=== PATIENT | female | born 1955 | race Caucasian/White ===

== ENCOUNTER → 2016-06-08 | Outpatient (CLI) | payer MEDICARE, BC | LOC: BHSO 10:38 | DX: F31.73 Bipolar disorder, in partial remission, most recent episode manic (principal) ==

== ENCOUNTER → 2016-08-18 | Outpatient (CLI) | payer MEDICARE, BC | LOC: BHSO 13:35 | DX: F31.73 Bipolar disorder, in partial remission, most recent episode manic (principal) ==

== ENCOUNTER → 2016-09-16 | Outpatient (CLI) | payer MEDICARE, BC | LOC: BHSO 10:16 | DX: F31.73 Bipolar disorder, in partial remission, most recent episode manic (principal) ==

== ENCOUNTER → 2016-10-14 | Outpatient (CLI) | payer MEDICARE, BC | LOC: BHSO 10:17 | DX: F31.73 Bipolar disorder, in partial remission, most recent episode manic (principal) ==

== ENCOUNTER → 2016-12-03 | Outpatient (CLI) | payer MEDICARE, BC | LOC: BHSO 10:18 | DX: F31.73 Bipolar disorder, in partial remission, most recent episode manic (principal) ==

== ENCOUNTER → 2016-12-31 | Outpatient (CLI) | payer MEDICARE, BC | LOC: BHSO 13:11 | DX: F31.73 Bipolar disorder, in partial remission, most recent episode manic (principal) ==

== ENCOUNTER → 2017-02-08 | Outpatient (CLI) | payer MEDICARE, BC | LOC: BHSO 11:38 | DX: F31.73 Bipolar disorder, in partial remission, most recent episode manic (principal) ==

== ENCOUNTER → 2017-03-03 | Outpatient (CLI) | payer MEDICARE, BC | LOC: BHSO 12:44 | DX: F41.1 Generalized anxiety disorder (principal) ==

== ENCOUNTER → 2017-04-26 | Outpatient (CLI) | payer MEDICARE, BC | LOC: BHSO 09:50 | DX: F31.73 Bipolar disorder, in partial remission, most recent episode manic (principal) | CPT/HCPCS: G0463 ==

== ENCOUNTER → 2017-05-20 | Outpatient (CLI) | payer MEDICARE, BC | LOC: BHSO 13:35 | DX: F31.4 Bipolar disorder, current episode depressed, severe, without psychotic features (principal) | CPT/HCPCS: G0463 ==

== ENCOUNTER → 2017-06-17 | Outpatient (CLI) | payer MEDICARE, BC | LOC: BHSO 10:41 | DX: F31.81 Bipolar II disorder (principal) | CPT/HCPCS: G0463 ==

== ENCOUNTER → 2017-07-12 | Outpatient (CLI) | payer MEDICARE, BC | LOC: BHSO 12:53 | DX: F31.4 Bipolar disorder, current episode depressed, severe, without psychotic features (principal) | CPT/HCPCS: G0463 ==

== ENCOUNTER → 2017-08-10 | Outpatient (CLI) | payer MEDICARE, BC | LOC: BHSO 13:48 | DX: F25.0 Schizoaffective disorder, bipolar type (principal) | CPT/HCPCS: G0463 ==

== ENCOUNTER → 2017-09-28 | Outpatient (CLI) | payer MEDICARE, BC | LOC: BHSO 11:30 | DX: F31.31 Bipolar disorder, current episode depressed, mild (principal) | CPT/HCPCS: G0463 ==

== ENCOUNTER → 2017-10-27 | Outpatient (CLI) | payer MEDICARE, BC | LOC: BHSO 08:55 | DX: F25.0 Schizoaffective disorder, bipolar type (principal) | CPT/HCPCS: G0463 ==

== ENCOUNTER → 2017-11-23 | Outpatient (CLI) | payer MEDICARE, BC | LOC: BHSO 10:32 | DX: F31.76 Bipolar disorder, in full remission, most recent episode depressed (principal) | CPT/HCPCS: G0463 ==

== ENCOUNTER → 2018-01-04 | Outpatient (CLI) | payer MEDICARE, BC | LOC: BHSO 10:30 | DX: F31.76 Bipolar disorder, in full remission, most recent episode depressed (principal) | CPT/HCPCS: G0463 ==

== ENCOUNTER → 2018-02-03 | Outpatient (CLI) | payer MEDICARE, BC | LOC: BHSO 10:15 | DX: F25.0 Schizoaffective disorder, bipolar type (principal) | CPT/HCPCS: G0463 ==

== ENCOUNTER → 2018-04-04 | Outpatient (CLI) | payer MEDICARE, BC | LOC: BHSO 11:16 | DX: F31.75 Bipolar disorder, in partial remission, most recent episode depressed (principal) | CPT/HCPCS: G0463 ==

== ENCOUNTER → 2018-05-25 | Outpatient (CLI) | payer MEDICARE, BC | LOC: BHSO 11:36 | DX: F31.72 Bipolar disorder, in full remission, most recent episode hypomanic (principal) | CPT/HCPCS: G0463 ==

== ENCOUNTER → 2018-08-01 | Outpatient (CLI) | payer MEDICARE, BC | LOC: BHSO 11:35 | DX: F31.75 Bipolar disorder, in partial remission, most recent episode depressed (principal) | CPT/HCPCS: G0463 ==

== ENCOUNTER → 2018-09-20 | Outpatient (CLI) | payer MEDICARE, BC | LOC: BHSO 14:39 | DX: F41.1 Generalized anxiety disorder (principal) | CPT/HCPCS: G0463 ==

== ENCOUNTER → 2018-11-07 | Outpatient (CLI) | payer MEDICARE, BC | LOC: BHSO 11:36 | DX: F33.41 Major depressive disorder, recurrent, in partial remission (principal) | CPT/HCPCS: G0463 ==

== ENCOUNTER → 2018-11-30 | Outpatient (CLI) | payer MEDICARE, BC | LOC: BHSO 10:52 | DX: F31.76 Bipolar disorder, in full remission, most recent episode depressed (principal) | CPT/HCPCS: G0463 ==

== ENCOUNTER → 2019-01-01 | Outpatient (CLI) | payer MEDICARE, BC | LOC: BHSO 14:46 | DX: F31.75 Bipolar disorder, in partial remission, most recent episode depressed (principal) | CPT/HCPCS: G0463 ==

== ENCOUNTER → 2019-04-03 | Outpatient (CLI) | payer MEDICARE, BC | LOC: BHSO 11:37 | DX: F31.32 Bipolar disorder, current episode depressed, moderate (principal) | CPT/HCPCS: G0463 ==

== ENCOUNTER → 2019-05-15 | Outpatient (CLI) | payer MEDICARE, BC | LOC: BHSO 10:38 | DX: F31.76 Bipolar disorder, in full remission, most recent episode depressed (principal) | CPT/HCPCS: G0463 ==

== ENCOUNTER → 2019-09-11 | Outpatient (CLI) | payer MEDICARE, BC | LOC: BHSO 11:36 | DX: F31.75 Bipolar disorder, in partial remission, most recent episode depressed (principal) | CPT/HCPCS: G0463 ==

== ENCOUNTER → 2019-12-06 | Outpatient (CLI) | payer MEDICARE, BC | LOC: BHSO 11:22 | DX: F31.76 Bipolar disorder, in full remission, most recent episode depressed (principal) | CPT/HCPCS: G0463 ==